=== PATIENT | female | born 1990 ===

== ENCOUNTER 2017-08-24 15:25 | Emergency (ER) | payer MEDICAID, OTHER ==
[2017-08-24 16:51] LABS: PARTIAL THROMBOPLASTIN TIME 30.8 Seconds (25.6-37.1); PROTHROMBIN TIME 11.2 Seconds (9.8-13.1)
[2017-08-24 17:29] LABS: BASO % 0.7 % (0.0-2.0); EOS # 0.4 K/uL (0.0-0.7); EOS % 6.6 % (0.0-4.0); HEMOGLOBIN 11.1 g/dL (12.0-16.0); LYMPH # 2.1 K/uL (1.0-4.3); LYMPH % 35.6 % (20.0-40.0); MEAN CELL VOLUME 79.4 fl (81.0-99.0); MEAN CORPUSCULAR HEMOGLOBIN 26.1 pg (27.0-31.0); MEAN CORPUSCULAR HGB CONC 32.9 g/dL (33.0-37.0); MONO # 0.5 K/uL (0.0-0.8); MONO % 8.2 % (0.0-10.0); NEUT # 2.9 K/uL (1.8-7.0); NEUT % 48.9 % (50.0-75.0); RBC 4.24 Mil/uL (3.80-5.20); RED CELL DISTRIBUTION WIDTH 16.4 % (11.5-14.5); WHITE BLOOD COUNT 5.9 K/uL (4.8-10.8)
[2017-08-24 17:32] LABS: ALB/GLOB RATIO 1.3 (1.0-2.1); ALBUMIN 4.1 g/dL (3.5-5.0); ALT/SGPT 29 U/L (9-52); AST/SGOT 24 U/L (14-36); BLOOD UREA NITROGEN 12 mg/dl (7-17); CALCIUM 8.8 mg/dL (8.4-10.2); GFR AFRICAN-AMERICAN > 60; GFR NON-AFRICAN AMERICAN > 60
--- NOTE | 2017-08-24 17:41 | RAD ---
HISTORY: Left-sided chest pain. COMPARISON: No prior. TECHNIQUE: Chest PA and lateral FINDINGS: LUNGS: No active pulmonary disease. PLEURA: No significant pleural effusion identified. No pneumothorax apparent. CARDIOVASCULAR: Normal. OSSEOUS STRUCTURES: No significant abnormalities. VISUALIZED UPPER ABDOMEN: Normal. OTHER FINDINGS: None. IMPRESSION: No active disease.
[2017-08-24 17:43] LABS: B-TYPE NATRIURETIC PEPTIDE 33.5 pg/ml (0-450)
[2017-08-24 18:06] VITALS: O2SAT 100
--- NOTE | 2017-08-24 20:23 | ED PDOC ---
HPI: Chest Pain Time Seen by Provider: 08/24/17 15:47 Chief Complaint (Nursing): Chest Pain Chief Complaint (Provider): chest pain History Per: Patient History/Exam Limitations: no limitations Onset/Duration Of Symptoms: Days (2), Gradual Current Symptoms Are (Timing): Still Present Quality: Tightness Associated Symptoms: denies: Nausea, Dyspnea, Diaphoresis, Syncope Modifying Factors: None Exacerbating Factors: Movement, Deep Breathing Alleviating Factors: None Additional Complaint(s): 27yo female c/o left sided chest pain radiating to L arm for more than a week, denies dizziness, SOB, syncope, leg pain/edema, history of blood clots or prior cardiac history. Symptoms slightly worse w movement and touch. 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 She has been taking OTC NSAID w mild relief. - Risk Factors PE Risk Factors: Neg: Extremity Immobilization/Fx, Recent Major Surgery, Recent Hospitalization, Active Cancer, Previous DVT, Previous PE, Venous Stasis, Estrogen Usage, , Post-, Recent Major Trauma TAD Risk Factors: Neg: Hypertension, Connective Tissue Disease, Active , First Degree Relative With TAD Past Medical History Reviewed: Historical Data, Nursing Documentation, Vital Signs Vital Signs: Last Vital Signs Temp 98.4 F 08/24/17 15:33 Pulse 62 08/24/17 18:05 Resp 16 08/24/17 18:05 BP 119/66 08/24/17 18:05 Pulse Ox 100 08/24/17 20:48 - Medical History PMH: Hyperthyroidism Other PMH: denies taking medications currently - Surgical History Surgical History: - Family History Family History: States: Unknown Family Hx - Social History Current smoker - smoking cessation education provided: No Alcohol: None - Home Medications Home Medications: Ambulatory Orders Medication Instructions Recorded Nitrofurantoin Macrocrystals 100 mg PO BID #10 cap 10/11/15 [Macrobid] Acetaminophen [Acetaminophen Extra 2 tab PO Q4 PRN #24 tablet 12/16/15 Strength] Ciprofloxacin HCl [Cipro] 500 mg PO BID #14 tablet 12/16/15 Ibuprofen [Motrin] 600 mg PO Q8 PRN #21 tab 12/16/15 Oseltamivir Phosphate [Tamiflu] 75 mg PO BID #10 capsule 06/16/16 - Allergies Allergies/Adverse Reactions: Allergies Allergy/AdvReac Type Severity Reaction Status Date / Time No Known Allergies Allergy Verified 12/15/15 22:33 DARIUS Risk Score for UA/NSTEMI - DARIUS Risk Score Age > 64: NO 3 or more CAD Risk Factors: NO Known CAD (Stenosis greater than 50%): NO Aspirin use in past 7 days: NO Severe Angina: NO EKG ST changes greater than 0.5mm: NO Positive Cardiac Marker: NO DARIUS Score: 0 Risk %: 5% Review of Systems Constitutional: Negative for: Fever Cardiovascular: Positive for: Chest Pain. Negative for: Palpitations, Orthopnea Respiratory: Negative for: Cough, Shortness of Breath Gastrointestinal: Negative for: Nausea, Vomiting, Diarrhea Genitourinary Female: Negative for: Dysuria Musculoskeletal: Negative for: Neck Pain Skin: Negative for: Rash, Lesions, Jaundice Neurological: Negative for: Weakness, Numbness, Headache, Dizziness Psych: Negative for: Anxiety Physical Exam - Reviewed Nursing Documentation Reviewed: Yes Vital Signs Reviewed: Yes - Physical Exam Appears: Positive for: Well, Non-toxic, No Acute Distress Head Exam: Positive for: ATRAUMATIC, NORMAL INSPECTION, NORMOCEPHALIC Skin: Positive for: Normal Color, Warm, DRY Eye Exam: Positive for: EOMI, Normal appearance, PERRL ENT: Positive for: Normal ENT Inspection Neck: Positive for: Normal, Painless ROM Cardiovascular/Chest: Positive for: Regular Rate, Rhythm Respiratory: Positive for: CNT, Normal Breath Sounds Pulses-Radial (L): 3+/4+ Pulses-Radial (R): 3+/4+ Gastrointestinal/Abdominal: Positive for: Normal Exam, Soft. Negative for: Tenderness, Guarding Back: Positive for: Normal Inspection Extremity: Positive for: Normal ROM, Other Neurologic/Psych: Positive for: Alert, Oriented, Gait (normal). Negative for: Motor/Sensory Deficits - Laboratory Results Result Diagrams: 08/24/17 17:21 08/24/17 17:17 - ECG O2 Sat by Pulse Oximetry: 100 Medical Decision Making Medical Decision Making: workup initiated for chest pain in young female without risk factors for premature CAD, dissection, embolism. labs reviewed, clinically unremarkable EKG has nonspecific changes, repeat EKG during visit and remains unchanged DDimer neg cbc revels mild anemia, requires outpatient workup chem unremarkable HEART score 1 Pt retained in ED 4+ hrs to monitor for progression or return of pain. Repeat trop neg. Re-eval 835pm results d/w local flatbed driver Maggie Margarita pt denies current symptoms states improved from prior. Offered hospital observation but she wishes to go home and followup w clinic, states will return if symptoms return. Followup [facility] clinic, discussed w resident to obtain 72hr followup appt, she will be called tomorrow for appt. Disposition - Clinical Impression Clinical Impression: Chest pain - Patient ED Disposition Is Patient to be Admitted: No Counseled Patient/Family Regarding: Studies Performed, Diagnosis, Need For Followup - Disposition Referrals: [facility] [Outside] Disposition: Routine/Home Disposition Time: 20:35 Condition: STABLE Additional Instructions: Followup with clinic in 72hrs for repeat evaluation. Return to ER for any worse or new symptoms. Take medication as directed. You will be called for an appointment with the clinic this week. espanol: Seguimiento con la clnica en 72 horas para sanchez evaluacin repetida. Regrese a la pippa de emergencias por cualquier sntoma peor o nuevo. [place] la medicacin segn las indicaciones. Se le pedir sanchez braulio con la clnica esta semana. Instructions: Chest Pain, Heart Disease in Women ([place]) Forms: [facility] (Latvian), [facility] ED School/Work Excuse Print Language: ZAMBIAN
[2017-08-24 21:06] VITALS: BP 118/62; PULSE 59; RESP 14; TEMP 98
--- NOTE | 2017-08-25 10:45 | CARD ---
APPROVED REPORT EKG Measurement Heart [id number] <Conclusion> Normal sinus rhythm Nonspecific T wave abnormality Abnormal ECG
--- NOTE | 2017-08-25 10:45 | CARD ---
APPROVED REPORT EKG Measurement Heart [id number] <Conclusion> Normal sinus rhythm Nonspecific T wave abnormality Abnormal ECG
== END 2017-08-24 21:07 | disposition home or self-care (01) ==
LOC: H.ER 15:25
DX: R07.89 Other chest pain (principal); E05.90 Thyrotoxicosis, unspecified without thyrotoxic crisis or storm
CPT/HCPCS: 71046; 80053; 81025; 83880; 84484; 85025; 85378; 85610; 85730; 93005; 96374; 99285; J1885